=== PATIENT | male | born 1980 | race African-American/Black ===

== ENCOUNTER → 2016-12-07 | Outpatient (CLI) | payer MEDICARE, OTHER | LOC: DAVITANR 13:25 | PROVIDERS: ATTEND Nurse Practitioner Family | DX: E87.5 Hyperkalemia (principal) | CPT/HCPCS: 84132 ==

== ENCOUNTER → 2016-12-08 | Outpatient (CLI) | payer MEDICARE, OTHER | LOC: DAVITANR 09:26 | PROVIDERS: ATTEND Nurse Practitioner Family | DX: E87.5 Hyperkalemia (principal) | CPT/HCPCS: 84132 ==

== ENCOUNTER → 2016-12-11 | Outpatient (CLI) | payer MEDICARE, OTHER | LOC: DAVITANR 11:13 | PROVIDERS: ATTEND Internal Medicine Nephrology | DX: E87.5 Hyperkalemia (principal) | CPT/HCPCS: 84132 ==

== ENCOUNTER → 2016-12-18 | Outpatient (CLI) | payer MEDICARE, OTHER | LOC: DAVITANR 11:19 | PROVIDERS: ATTEND Internal Medicine Nephrology | DX: E87.5 Hyperkalemia (principal) | CPT/HCPCS: 84132 ==

== ENCOUNTER → 2016-12-20 | Outpatient (CLI) | payer MEDICARE, OTHER | LOC: DAVITANR 11:25 | PROVIDERS: ATTEND Internal Medicine Nephrology | DX: E87.5 Hyperkalemia (principal) | CPT/HCPCS: 84132 ==

== ENCOUNTER → 2016-12-25 | Outpatient (CLI) | payer MEDICARE, OTHER | LOC: DAVITANR 09:54 | PROVIDERS: ATTEND Internal Medicine Nephrology | DX: E87.5 Hyperkalemia (principal) | CPT/HCPCS: 84132 ==

== ENCOUNTER 2017-02-01 05:20 | Emergency (ER) | payer MEDICARE, OTHER ==
[2017-02-01] MEDS ORDERED: ASPIRIN 81 MG TABLET, CHEWABLE PO ONE (06:27)
[2017-02-01 06:50] LABS: ABSOLUTE BASOPHILS # (AUTO) 0.1 10^3/uL (0.0-0.2); ABSOLUTE EOSINOPHILS # (AUTO) 0.6 10^3/uL (0.0-0.6); ABSOLUTE LYMPHOCYTES (AUTO) 0.6 10^3/uL (0.5-4.7); ABSOLUTE MONOCYTES (AUTO) 0.7 10^3/uL (0.1-1.4); ABSOLUTE NEUT (AUTO) 5.6 10^3/uL (1.7-8.2); BASOPHILS % (AUTO) 0.8 % (0-2); EOSINOPHILS % (AUTO) 7.6 % (0-6); HEMATOCRIT 24.2 % (37.9-51.0); HGB HCT DIFFERENCE -0.2; LYMPHOCYTES % (AUTO) 8.4 % (13-45); MEAN CORPUSCULAR HEMOGLOBIN 26.7 pg (27.0-33.4); MEAN CORPUSCULAR HGB CONC 32.8 g/dL (32.0-36.0); MEAN CORPUSCULAR VOLUME 82 fl (80-97); MONOCYTES % (AUTO) 8.8 % (3-13); RED BLOOD COUNT 2.97 10^6/uL (4.35-5.55); RED CELL DISTRIBUTION WIDTH 19.2 % (11.5-14.0); SEGMENTED NEUTROPHILS % (AUTO) 74.4 % (42-78); WHITE BLOOD COUNT 7.5 10^3/uL (4.0-10.5)
--- NOTE | 2017-02-01 07:07 | RADIOLOGY REPORT (SQ) ---
EXAM DESCRIPTION: CHEST SINGLE VIEW COMPLETED DATE/TIME: 02/01/2017 6:53 am REASON FOR STUDY: CP COMPARISON: CT, 02/11/2016. EXAM PARAMETERS: NUMBER OF VIEWS: One view. TECHNIQUE: Single frontal radiographic view of the chest acquired. RADIATION DOSE: NA LIMITATIONS: None. FINDINGS: LUNGS AND PLEURA: Minimal left basilar atelectasis or scar rim blunting of the left costop hrenic angle. Moderate lung volume. MEDIASTINUM AND HILAR STRUCTURES: No masses. Contour normal. HEART AND VASCULAR STRUCTURES: Heart normal in size. Normal vasculature. BONES: No acute findings. HARDWARE: None in the chest. OTHER: No other significant finding. IMPRESSION: Minimal left basilar atelectasis or scar. TECHNICAL DOCUMENTATION: JOB ID: [id number]
[2017-02-01 07:08] LABS: ALANINE AMINOTRANSFERASE 27 U/L (21-72); ALBUMIN 3.2 g/dL (3.5-5.0); ALKALINE PHOSPHATASE 42 U/L (38-126); ASPARTATE AMINO TRANSFERASE 51 U/L (17-59); BILIRUBIN,DIRECT 0.3 mg/dL (0.0-0.4); BILIRUBIN,TOTAL 0.3 mg/dL (0.2-1.3); CALCIUM 9.5 mg/dL (8.4-10.2); CARBON DIOXIDE 21 mmol/L (22-30); CHLORIDE 104 mmol/L (98-107); CREATINE KINASE 793 U/L (55-170); CREATINE KINASE MB 5.85 ng/mL (<4.55); GLUCOSE 78 mg/dL (75-110); POTASSIUM 5.9 mmol/L (3.6-5.0); SODIUM 146.5 mmol/L (137-145); TOTAL PROTEIN 5.8 g/dL (6.3-8.2)
[2017-02-01 07:12] LABS: TROPONIN I 0.034 ng/mL
[2017-02-01 07:15] LABS: BLOOD UREA NITROGEN 119 mg/dL (7-20)
--- NOTE | 2017-02-01 07:26 | ER Document Report ---
ED Cardiac <MARCO WALKER - Last Filed: 02/01/17 08:31> - General Information source: Patient TRAVEL OUTSIDE OF THE U.S. IN LAST 30 DAYS: No - HPI Patient complains to provider of: Chest pain Chest pain location: Substernal Chest pain radiation location: None Associated symptoms: Other - see above Exacerbated by: Deep breaths, Other - putting fluid on through dialysis port Relieved by: Other - pulling fluid off from dialysis port <RUBEN KEITH - Last Filed: 02/03/17 15:31> - General Chief Complaint: Chest Pain Stated Complaint: CHEST PAIN Notes: Patient is a 36 year old male who presents to the ED with complaints of intermittent chest pain x1 week. Patient states that if feels like a tightness. Patient denies any SOB but states it is painful to breath. Patient recently traveled to [place] for a week. Patient has had multiple stress tests and EKGs done in the past. Patient recently traveled to [place]. Patient is a dialysis patient and reports draining around 0330 this morning. Patient states when he draws fluid off the pain is relieved and states recently he started having pain with putting fluid on. Patient denies any abdominal pain and states the fluid he is pulling off is normal. (RUBEN KEITH) - Related Data Allergies/Adverse Reactions: No Known Allergies Allergy (Unverified 06/28/15 10:36) Home Medications: Current Home Medications Calcitriol 0.25 mcg PO ASDIR PRN 02/01/17 [History] Carvedilol 25 mg PO BID 02/01/17 [History] Clonidine HCl [Clonidine HCl ER] 0.1 mg PO Q12 02/01/17 [History] Docusate Sodium 100 mg PO PRN PRN 02/01/17 [History] Escitalopram Oxalate 10 mg PO DAILY 02/01/17 [History] Folic Acid/Vitamin B Comp W-C [Chichi-Ernesto Tablet] 0.8 mg PO DAILY 02/01/17 [ History] Furosemide [Lasix] 40 mg PO DAILY 02/01/17 [History] Melatonin/Pyridoxine HCl (B6) [Melatonin 10 mg Tablet] 1 each PO PRN PRN [History] Omeprazole 40 mg PO DAILY 02/01/17 [History] Sodium Polystyrene Sulfonate 15 gm PO PRN PRN 08/03/17 [History] Past Medical History - General Information source: Patient - Social History Smoking Status: Never Smoker Chew tobacco use (# tins/day): No Frequency of alcohol use: None Drug Abuse: None Family History: Reviewed & Not Pertinent Patient has suicidal ideation: No Patient has homicidal ideation: No - Past Medical History Cardiac Medical History: Reports: Hx Hypertension - on meds Renal/ Medical History: Reports: Hx Peritoneal Dialysis - Drained at 330 this am - Immunizations Hx Diphtheria, Pertussis, Tetanus Vaccination: Yes <RUBEN KEITH - Last Filed: 02/03/17 15:31> Review of Systems - Review of Systems Constitutional: No symptoms reported EENT: No symptoms reported Cardiovascular: See HPI, Chest pain Respiratory: See HPI, Hurts to breathe. denies: Short of breath Gastrointestinal: No symptoms reported Genitourinary: No symptoms reported Male Genitourinary: No symptoms reported Musculoskeletal: No symptoms reported Skin: No symptoms reported Hematologic/Lymphatic: No symptoms reported Neurological/Psychological: No symptoms reported <RUBEN KEITH - Last Filed: 02/03/17 15:31> Physical Exam - General General appearance: Appears well, Alert In distress: None - HEENT Head: Normocephalic, Atraumatic Eyes: Normal Extraocular movements intact: Yes Pupils: PERRL - Respiratory Respiratory status: No respiratory distress Breath sounds: Normal - Cardiovascular Rhythm: Regular Heart sounds: Normal auscultation Murmur: Yes - loud crunching type murmur, patient was informed of murmur 1 year ago - Abdominal Inspection: Normal Distension: No distension Bowel sounds: Normal Tenderness: Tender - epigastric tenderness - Back Back: Normal - Extremities General upper extremity: Normal inspection, Normal ROM General lower extremity: Normal inspection, Edema - good pitting edema bilaterally, Normal ROM - Neurological Neuro grossly intact: Yes - Psychological Associated symptoms: Normal affect, Normal mood - Skin Skin Temperature: Warm Skin Moisture: Dry Skin Color: Normal <RUBEN KEITH - Last Filed: 02/03/17 15:31> - Vital signs Vitals: Temp Pulse Resp BP Pulse Ox 97.4 F 76 18 155/107 H 99 02/01/17 05:26 02/01/17 05:26 02/01/17 05:26 02/01/17 05:26 02/01/17 05:26 Course - Laboratory Result Diagrams: 02/01/17 06:35 02/01/17 06:35 - EKG Interpretation by Me EKG shows normal: Sinus rhythm, Hostetter, Intervals, QRS Complexes, ST-T Waves Rate: Normal - 73 Rhythm: NSR Hostetter/QRS: LAHB/LAFB P Waves: LAE When compared to previous EKG there are: No significant change <MARCO WALKER - Last Filed: 02/01/17 08:31> - Laboratory Result Diagrams: 02/01/17 06:35 02/01/17 06:35 - Consults Dr. Adam Time consulted: 08:20 <RUBEN KEITH - Last Filed: 02/03/17 15:31> - Re-evaluation Re-evalutation: 02/01/17 08:27 Patient reports his epigastric substernal discomfort seemed to improve after the GI cocktail. His BUN is 119 and creatinine is 33.69, this suggests that he has not been as compliant as he should during his vacation in [place] this past week. He will be given a dose of Kayexalate now for potassium 5.9, and is to go home and start his peritoneal dialysis. Dr. Adam will have the PD nurse follow-up with the patient. (MARCO WALKER) - Vital Signs Vital signs: Temp Pulse Resp BP Pulse Ox 97.4 F 78 21 H 138/107 H 96 02/01/17 08:36 02/01/17 08:36 02/01/17 08:36 02/01/17 08:36 02/01/17 08:36 - Laboratory Laboratory results interpreted by me: 02/01/17 02/01/17 02/01/17 06:35 06:35 06:35 RBC 2.97 L Hgb 8.0 L Hct 24.2 L MCH 26.7 L RDW 19.2 H Lymphocytes % 8.4 L Eosinophils % 7.6 H Sodium 146.5 H Potassium 5.9 H Carbon Dioxide 21 L Anion Gap 22 H BUN 119 H Creatinine 33.69 H Est GFR ( Amer) 2 L Est GFR (Non-Af Amer) 1 L Creatine Kinase 793 H CK-MB (CK-2) 5.85 H Total Protein 5.8 L Albumin 3.2 L - Consults Dr. Adam Reason for consultation: 02/01/17 08:20 Discussed patient. He suggests giving the patient 30 grams of kayexalate. He can then be discharged home. I will verify and instruct patient to be doing his PD 4x a day. (RUBEN KEITH) Discharge <MARCO WALKER - Last Filed: 02/01/17 08:31> <RUBEN KEITH - Last Filed: 02/03/17 15:31> - Discharge Clinical Impression: Hyperkalemia GERD (gastroesophageal reflux disease) Qualifiers: Esophagitis presence: with esophagitis Qualified Code(s): K21.0 - Gastro- esophageal reflux disease with esophagitis Chronic renal failure Qualifiers: Chronic kidney disease stage: stage 5 Qualified Code(s): N18.5 - Chronic kidney disease, stage 5 Condition: Stable Disposition: HOME, SELF-CARE Additional Instructions: Reflux Disease (GERD): Gastro-Esophageal Reflux Disease (GERD) is caused by stomach acid refluxing back up into the esophagus. The valve at the end of the esophagus may be weak. This is common in persons with a hiatal hernia. GERD symptoms can include indigestion, chest pain, heartburn, or food "sticking." Certain foods, alcohol, and aspirin can make GERD worse. Treatment depends on the severity. Usually, antacids or acid-suppressing medicines are used. When the esophagus is acutely inflamed, the physician will often prescribe membrane-protective drugs such as Carafate. Some patients benefit from medication such as Reglan that tightens the valve at the top of the stomach. Avoid those foods that bring on your symptoms. For many people, these foods are coffee, chocolate, onions, garlic, and carbonated drinks. Don't use alcohol, aspirin, caffeine, or tobacco. Don't eat late at night -- within 4 hours of bedtime. Don't over-eat. If necessary, elevate the head of your bed about 4 inches so that stomach acid will not roll up into your esophagus. Call the doctor if you develop severe chest pain, inability to swallow fluids, fever, or worsening symptoms. //////////////////////////////////////////////////////////////////////////////// //////////////////////////////////////////////////////////////////////////////// ////////////// Start your peritoneal dialysis when you get home. Be sure to do it 4 times daily. Eat a bland diet for the next week. Take Prilosec OTC once daily for the next week. Take antacids such as Maalox or Mylanta between meals and at bedtime. Follow-up with Dr. Adam to repeat your lab work and to evaluate your symptoms. RETURN TO THE EMERGENCY ROOM IF ANY NEW OR WORSENING SYMPTOMS. [place] Attestation: 02/01/17 08:30 I personally performed the services described in the documentation, reviewed and edited the documentation which was dictated to the scribe in my presence, and it accurately records my words and actions. (MARCO WALKER) Scribe Documentation - Scribe Written by Zeina:: zeina Chaney, 02/01/2017, 0721 acting as scribe for :: Airam <RUBEN KEITH - Last Filed: 02/03/17 15:31>
[2017-02-01 07:30] LABS: CREATININE RESULT 33.69 mg/dL (0.52-1.25)
[2017-02-01 07:31] LABS: ANION GAP 22 (5-19)
[2017-02-01] MEDS ORDERED: LIDOCAINE 2% VISCOUS SOLN 20 ML UDCUP PO ONE (07:31)
[2017-02-01] MEDS ORDERED: MAG HYDROX/AL HYDROX/SIMETH SUSP 30 ML UDCUP PO ONE (07:31)
--- NOTE | 2017-02-01 08:10 | EKG REPORT ---
SEVERITY:- ABNORMAL ECG - SINUS RHYTHM PROBABLE LEFT ATRIAL ABNORMALITY LEFT ANTERIOR FASCICULAR BLOCK CONSIDER RVH W/ SECONDARY REPOL ABNORMALITY : Confirmed by: Manuel Combs MD 01-Feb-2017 08:10:27
[2017-02-01] MEDS ORDERED: SODIUM POLYSTYRENE SULFONATE 15 GM/60 ML PO ONE (08:24)
[2017-02-01 08:37] VITALS: BP 138/107
== END 2017-02-01 09:11 | disposition home or self-care (01) ==
LOC: ER 05:20
DX: K21.0 Gastro-esophageal reflux disease with esophagitis (principal); N18.5 Chronic kidney disease, stage 5; E87.5 Hyperkalemia; R07.9 Chest pain, unspecified; Z79.899 Other long term (current) drug therapy
CPT/HCPCS: 93005; 99285; 36415; 82553; 82550; 85025; 80053; 84484; 71010; 93010; A9270; J3490

== ENCOUNTER 2017-02-07 17:04 | Emergency (ER) | payer MEDICARE, OTHER ==
--- NOTE | 2017-02-07 17:59 | ER Document Report ---
ED Medical Screen (RME) - General TRAVEL OUTSIDE OF THE U.S. IN LAST 30 DAYS: No <MARCO WALKER - Last Filed: 02/07/17 18:00> <DEBRA DUARTE - Last Filed: 02/07/17 20:20> - General Chief Complaint: Dizziness Stated Complaint: WEAKNESS Time Seen by Provider: 02/07/17 17:50 Notes: This 36-year-old male patient comes emergency room for feeling dizzy lightheaded. He was seen here on 02/01/2017 and found to have very high BUN and creatinine and elevated potassium. His a peritoneal dialysis patient who had been on vacation in [place] and probably not very compliant with his dialysis schedule. The next day he was sent to [facility] for uremic pericarditis and started hemodialysis. He reports while there, they restrict his fluid intake and took a large amount of fluid off every day. His blood pressure medication was reduced while he was in the hospital. He was released from the hospital yesterday. When he got up this morning to go to dialysis he felt a little dizzy and spaced out and once there found his blood pressure was about 90 systolic. He did dialyze but they did not remove any fluid. He was discharged with a blood pressure 100/74 while standing, but soon after being discharged from dialysis his blood pressure was much lower. I have greeted and performed a rapid initial assessment of this patient. A comprehensive ED assessment and evaluation of the patient, analysis of test results and completion of the medical decision making process will be conducted by additional ED providers. (MARCO WALKER) - Related Data Allergies/Adverse Reactions: No Known Allergies Allergy (Verified 02/07/17 17:34) Home Medications: Current Home Medications Clonidine HCl [Clonidine HCl ER] 0.1 mg PO Q12 02/07/17 [History] Valsartan [Diovan 160 mg Tablet] 160 mg PO DAILY 02/07/17 [History] Past Medical History - Past Medical History Cardiac Medical History: Reports: Hx Hypertension - on meds Denies: Hx Heart Attack Pulmonary Medical History: Denies: Hx Asthma, Hx Bronchitis, Hx COPD, Hx Pneumonia Neurological Medical History: Denies: Hx Seizures Renal/ Medical History: Reports: Hx Peritoneal Dialysis Musculoskeltal Medical History: Denies Hx Arthritis - Immunizations Hx Diphtheria, Pertussis, Tetanus Vaccination: Yes <MARCO WALKER - Last Filed: 02/07/17 18:00> Course - Laboratory Result Diagrams: 02/07/17 18:45 02/07/17 18:45 - EKG Interpretation by Me EKG shows normal: Sinus rhythm Rhythm: NSR - EKG machine is noting ST elevation which I do not see. No WV depression or WV elevation in AVR to suggest acute pericarditis.96 <DEBRA DUARTE - Last Filed: 02/07/17 20:20> - Vital Signs Vital signs: Temp Pulse Resp BP Pulse Ox 97.7 F 84 18 104/76 100 02/07/17 17:37 02/07/17 17:37 02/07/17 17:37 02/07/17 17:37 02/07/17 17:37 - Laboratory Laboratory results interpreted by me: 02/07/17 02/07/17 18:45 18:45 RBC 2.54 L Hgb 6.8 L Hct 21.8 L MCH 26.9 L MCHC 31.3 L RDW 19.2 H Seg Neutrophils % 78.9 H Lymphocytes % 8.0 L Creatinine 4.27 H Est GFR ( Amer) 19 L Est GFR (Non-Af Amer) 16 L Direct Bilirubin 0.5 H AST 160 H Creatine Kinase 415 H Doctor's Discharge <MARCO WALKER - Last Filed: 02/07/17 18:00> <DEBRA DUARTE - Last Filed: 02/07/17 20:20> - Discharge Clinical Impression: Dizziness, Chronic renal failure, Anemia, chronic disease Condition: Good Disposition: HOME, SELF-CARE Instructions: Dizziness ([facility]) Additional Instructions: Your blood count, hemoglobin, was slightly lower than it was before today but you have no evidence of ongoing bleeding and are otherwise stable for discharge. These have your blood checked at dialysis or your primary care doctor in 2 days to confirm that this is not getting worse. Please speak with your regular doctor concerning her medications because this may have caused her symptoms today.
--- NOTE | 2017-02-07 18:54 | ER Document Report ---
ED General - General Chief Complaint: Dizziness Stated Complaint: WEAKNESS Time Seen by Provider: 02/07/17 17:50 Notes: This 36-year-old male with a complex medical history consisting of end-stage renal disease previously on peritoneal dialysis now on hemodialysis secondary to a recent diagnosis of pericarditis who presents with episode of generalized weakness and dizziness that began after he took his 2 blood pressure meds this morning and drove himself to dialysis. He did not pass out but felt like he might. He had no chest pain shortness of breath or headache. He did get to dialysis even though EMS was called to assist him he refused to come to the ED initially. He had a full run of 4 hours of dialysis after she felt much better. He states that his blood pressure was slightly low at 110s after dialysis. His baseline is 130s. He now feels fine. He denies any bleeding. Compliant with meds. TRAVEL OUTSIDE OF THE U.S. IN LAST 30 DAYS: No - Related Data Allergies/Adverse Reactions: No Known Allergies Allergy (Verified 02/07/17 17:34) Home Medications: Current Home Medications Clonidine HCl [Clonidine HCl ER] 0.1 mg PO Q12 02/07/17 [History] Valsartan [Diovan 160 mg Tablet] 160 mg PO DAILY 02/07/17 [History] Past Medical History - General Information source: Patient - Social History Smoking Status: Never Smoker Family History: Reviewed & Not Pertinent Patient has suicidal ideation: No Patient has homicidal ideation: No - Past Medical History Cardiac Medical History: Reports: Hx Hypertension - on meds Denies: Hx Heart Attack Pulmonary Medical History: Denies: Hx Asthma, Hx Bronchitis, Hx COPD, Hx Pneumonia Neurological Medical History: Denies: Hx Seizures Renal/ Medical History: Reports: Hx Peritoneal Dialysis Musculoskeltal Medical History: Denies Hx Arthritis - Immunizations Hx Diphtheria, Pertussis, Tetanus Vaccination: Yes Review of Systems - Review of Systems Notes: REVIEW OF SYSTEMS GEN: Denies fever, chills, weight loss ENT: Denies sore throat, nasal discharge, ear pain EYES: Denies blurry vision, eye pain, discharge CV: Denies chest pain, palpitations, edema RESP: Denies cough, shortness of breath, wheezing GI: Denies abdominal pain, nausea, vomiting, diarrhea MSK: Denies joint pain/swelling, edema, SKIN: Denies rash, skin lesions LYMPH: Denies swollen glands/lymph nodes NEURO: Denies headache, focal weakness or numbness, dizziness PSYCH: Denies depression, suicidal or homicidal ideation PHYSICAL EXAMINATION General: No acute distress, well-nourished Head: Atraumatic, normocephalic ENT: Mouth normal, oropharynx moist, no exudates or tonsillar enlargement Eyes: Conjunctiva normal, pupils equal, lids normal Neck: No JVD, supple, no guarding CVS: Normal rate, regular rhythm, no murmurs. There is a dialysis catheter in the right chest tunneled with no tenderness which has a clean site. Resp: No resp distress, equal and normal breath sounds bilaterally GI: Nondistended, soft, no tenderness to palpation, no rebound or guarding Ext: No deformities, no edema, normal range of motion in upper and lower ext Back: No CVA or midline TTP Skin: No rash, warm Lymphatic: No lymphadeopathy noted Neuro: Awake, alert. Face symmetric. GCS 15.. Positive dizziness. Physical Exam - Vital signs Vitals: Temp Pulse Resp BP Pulse Ox 97.7 F 84 18 104/76 100 02/07/17 17:37 02/07/17 17:37 02/07/17 17:37 02/07/17 17:37 02/07/17 17:37 Course - Re-evaluation Re-evalutation: 02/07/17 18:54 36-year-old male on dialysis presents with resolved episode of dizziness. Here his vital signs are at his baseline he looks very well. I suspect he either had an episode of hypotension or hypertension, however if he was super hypotensive he would never been dialyzed. His medication may have an effect as well. Either way, now he looks well with normal vital signs. We will check his labs. He does have chronic anemia but no symptoms of worsening anemia or blood loss. Will observe carefully in ED. 02/07/17 20:18 Remained clinically stable. Aside from some slightly worse anemia, which should not cause transient symptoms, his labs are normal and he is well dialyzed based on his labs. He is stable for discharge with follow-up including getting repeat labs which I put in his discharge information. I have discussed with the patient there likely diagnosis, aftercare plan, follow -up plans and my usual and customary return precautions. They verbalized understanding of this. - Vital Signs Vital signs: Temp Pulse Resp BP Pulse Ox 97.7 F 84 18 104/76 100 02/07/17 17:37 02/07/17 17:37 02/07/17 17:37 02/07/17 17:37 02/07/17 17:37 - Laboratory Result Diagrams: 02/07/17 18:45 02/07/17 18:45 Laboratory results interpreted by me: 02/07/17 02/07/17 18:45 18:45 RBC 2.54 L Hgb 6.8 L Hct 21.8 L MCH 26.9 L MCHC 31.3 L RDW 19.2 H Seg Neutrophils % 78.9 H Lymphocytes % 8.0 L Creatinine 4.27 H Est GFR ( Amer) 19 L Est GFR (Non-Af Amer) 16 L Direct Bilirubin 0.5 H AST 160 H Creatine Kinase 415 H Discharge - Discharge Clinical Impression: Dizziness, Chronic disease anemia Chronic renal failure Qualifiers: Chronic kidney disease stage: stage 5 Qualified Code(s): N18.5 - Chronic kidney disease, stage 5 Condition: Good Disposition: HOME, SELF-CARE Instructions: Dizziness ([facility]) Additional Instructions: Your blood count, hemoglobin, was slightly lower than it was before today but you have no evidence of ongoing bleeding and are otherwise stable for discharge. These have your blood checked at dialysis or your primary care doctor in 2 days to confirm that this is not getting worse. Please speak with your regular doctor concerning her medications because this may have caused her symptoms today.
[2017-02-07 19:30] LABS: ABSOLUTE BASOPHILS # (AUTO) 0.1 10^3/uL (0.0-0.2); ABSOLUTE EOSINOPHILS # (AUTO) 0.1 10^3/uL (0.0-0.6); ABSOLUTE LYMPHOCYTES (AUTO) 0.6 10^3/uL (0.5-4.7); ABSOLUTE MONOCYTES (AUTO) 0.9 10^3/uL (0.1-1.4); ABSOLUTE NEUT (AUTO) 6.3 10^3/uL (1.7-8.2); BASOPHILS % (AUTO) 0.8 % (0-2); EOSINOPHILS % (AUTO) 1.1 % (0-6); HEMATOCRIT 21.8 % (37.9-51.0); HGB HCT DIFFERENCE -1.4; MEAN CORPUSCULAR HEMOGLOBIN 26.9 pg (27.0-33.4); MEAN CORPUSCULAR HGB CONC 31.3 g/dL (32.0-36.0); MEAN CORPUSCULAR VOLUME 86 fl (80-97); MONOCYTES % (AUTO) 11.2 % (3-13); RED BLOOD COUNT 2.54 10^6/uL (4.35-5.55); RED CELL DISTRIBUTION WIDTH 19.2 % (11.5-14.0); SEGMENTED NEUTROPHILS % (AUTO) 78.9 % (42-78)
[2017-02-07 19:50] LABS: ALANINE AMINOTRANSFERASE 63 U/L (21-72); ALBUMIN 3.7 g/dL (3.5-5.0); ALKALINE PHOSPHATASE 76 U/L (38-126); ANION GAP 9 (5-19); ASPARTATE AMINO TRANSFERASE 160 U/L (17-59); BILIRUBIN,DIRECT 0.5 mg/dL (0.0-0.4); BILIRUBIN,TOTAL 0.6 mg/dL (0.2-1.3); CALCIUM 8.9 mg/dL (8.4-10.2); CARBON DIOXIDE 28 mmol/L (22-30); CHLORIDE 100 mmol/L (98-107); CREATINE KINASE 415 U/L (55-170); CREATININE RESULT 4.27 mg/dL (0.52-1.25); GLUCOSE 102 mg/dL (75-110); POTASSIUM 4.4 mmol/L (3.6-5.0); SODIUM 137.1 mmol/L (137-145)
[2017-02-07 19:51] LABS: HEMOGLOBIN 6.8 g/dL (13.5-17.0)
[2017-02-07 20:06] LABS: BLOOD UREA NITROGEN 14 mg/dL (7-20)
[2017-02-07 21:04] VITALS: BP 118/85
--- NOTE | 2017-02-08 13:07 | EKG REPORT ---
SEVERITY:- NORMAL ECG - SINUS RHYTHM ST ELEV, PROBABLE NORMAL EARLY REPOL PATTERN : Confirmed by: Kayla Barker 08-Feb-2017 13:07:07
== END 2017-02-07 20:50 | disposition home or self-care (01) ==
LOC: ER 17:04
DX: R42 Dizziness and giddiness (principal); D64.9 Anemia, unspecified; R53.1 Weakness; I12.0 Hypertensive chronic kidney disease with stage 5 chronic kidney disease or end stage renal disease; N18.6 End stage renal disease; Z99.2 Dependence on renal dialysis; Z79.899 Other long term (current) drug therapy
CPT/HCPCS: 36415; 80053; 82550; 84484; 85025; 86850; 86900; 86901; 87040; 93005; 93010; 99284

== ENCOUNTER 2017-02-09 09:22 | Emergency (ER) | payer MEDICARE, OTHER ==
--- NOTE | 2017-02-09 09:44 | ER Document Report ---
ED General - General Stated Complaint: RESPIRATORY DISTRESS Time Seen by Provider: 02/09/17 09:25 Mode of Arrival: Medic Information source: Patient Notes: 36-year-old male history of dialysis chronic kidney disease presents with complaints of shortness of breath that started just prior to arrival. Patient denies any fevers or chills with #92%. Symptoms started 1 hour prior to arrival. Patient TRAVEL OUTSIDE OF THE [place] IN LAST 30 DAYS: No - Related Data Allergies/Adverse Reactions: No Known Allergies Allergy (Verified 02/07/17 17:34) Past Medical History - Social History Smoking Status: Never Smoker Cigarette use (# per day): No Chew tobacco use (# tins/day): No Smoking Education Provided: No Family History: Reviewed & Not Pertinent - Past Medical History Cardiac Medical History: Reports: Hx Hypertension - on meds Denies: Hx Heart Attack Pulmonary Medical History: Denies: Hx Asthma, Hx Bronchitis, Hx COPD, Hx Pneumonia Neurological Medical History: Denies: Hx Seizures Renal/ Medical History: Reports: Hx Peritoneal Dialysis Musculoskeltal Medical History: Denies Hx Arthritis - Immunizations Hx Diphtheria, Pertussis, Tetanus Vaccination: Yes Physical Exam - Vital signs Vitals: Resp 20 02/09/17 09:29 Course - Re-evaluation Re-evalutation: 02/09/17 09:52 Due to patient's hypotension hypoxemia and recent diagnosis of pericarditis a bedside ultrasound was performed and I do believe patient has a very large pericardial effusion, we do not have interventional thickening deal with this, I did speak with Dr. Hurd who requests a CT of the chest for her to diagnosis faster since echo is in the middle of a procedure, we do not have interventional radiology to perform pericardial window or drainage 02/09/17 10:10 Echo is here , large effusion confirmed 02/09/17 10:20 Patient's potassium is 6.6 Dr. Adam has been paged, he will be treated with medication in the meantime 02/09/17 10:26 Dr Marroquin welding tester request nephro admission to [facility] 02/09/17 10:[address] Adam requests Dr Rivera to evaluate 02/09/17 10:33 Echo is complete, agree with large effusion 02/09/17 10:44 Dr mcleod nephrolgosit states he does not admit 02/09/17 10:59 Dr Adam states he spoke with Dr Mcleod, agrees that patient needs cardio or interventional Dr Marroquin accepts the patient to the ICU , does not wish to speak with me further 02/09/17 11:20 02/09/17 12:05 Flight crew given instruction - Vital Signs Vital signs: Temp Pulse Resp BP Pulse Ox 97.7 F 95 23 H 107/61 97 02/09/17 09:30 02/09/17 09:30 02/09/17 11:31 02/09/17 11:31 02/09/17 11:31 - Laboratory Result Diagrams: 02/09/17 09:40 02/09/17 09:40 Laboratory results interpreted by me: 02/09/17 02/09/17 02/09/17 09:40 09:40 09:40 WBC 11.2 H RBC 2.75 L Hgb 7.0 L Hct 23.9 L MCH 25.6 L MCHC 29.5 L RDW 18.7 H Lymphocytes % 7.0 L Monocytes % 14.9 H Absolute Neutrophils 8.7 H Absolute Monocytes 1.7 H Sodium 132.9 L Potassium 6.6 H* Chloride 94 L Carbon Dioxide 18 L Anion Gap 21 H BUN 33 H Creatinine 6.19 H Est GFR ( Amer) 12 L Est GFR (Non-Af Amer) 10 L Glucose 74 L Direct Bilirubin 0.5 H AST 3052 H ALT 1230 H Creatine Kinase 443 H NT-Pro-B Natriuret Pep 4680 H Total Protein 5.6 L Albumin 3.0 L - Diagnostic Test Radiology reviewed: Image reviewed, Reports reviewed - large effusion Critical Care Note - Critical Care Note Total time excluding time spent on procedures (mins): 110 Comments: Please allow for 110 minutes of critical care time for multiple evaluations, speaking with multiple speciailst, treating multiple critical life threatening issues Discharge - Discharge Clinical Impression: ESRD (end stage renal disease), Hyperkalemia, Pericardial effusion, Hypoxemia Hypotension Qualifiers: Hypotension type: unspecified hypotension type Qualified Code(s): I95.9 - Hypotension, unspecified Condition: Critical Disposition: [facility] Referrals: Sherrie ADAM MD [Primary Care Provider] - Follow up as needed
[2017-02-09 09:51] LABS: ABSOLUTE LYMPHOCYTES (AUTO) 0.8 10^3/uL (0.5-4.7); ABSOLUTE MONOCYTES (AUTO) 1.7 10^3/uL (0.1-1.4); ABSOLUTE NEUT (AUTO) 8.7 10^3/uL (1.7-8.2); BASOPHILS % (AUTO) 0.3 % (0-2); HEMATOCRIT 23.9 % (37.9-51.0); HGB HCT DIFFERENCE -2.9; MEAN CORPUSCULAR HEMOGLOBIN 25.6 pg (27.0-33.4); MEAN CORPUSCULAR HGB CONC 29.5 g/dL (32.0-36.0); MEAN CORPUSCULAR VOLUME 87 fl (80-97); MONOCYTES % (AUTO) 14.9 % (3-13); RED BLOOD COUNT 2.75 10^6/uL (4.35-5.55); RED CELL DISTRIBUTION WIDTH 18.7 % (11.5-14.0); SEGMENTED NEUTROPHILS % (AUTO) 77.8 % (42-78); WHITE BLOOD COUNT 11.2 10^3/uL (4.0-10.5)
[2017-02-09 10:05] LABS: ALKALINE PHOSPHATASE 121 U/L (38-126); BILIRUBIN,DIRECT 0.5 mg/dL (0.0-0.4); BLOOD UREA NITROGEN 33 mg/dL (7-20); CALCIUM 9.3 mg/dL (8.4-10.2); CARBON DIOXIDE 18 mmol/L (22-30); CHLORIDE 94 mmol/L (98-107); CREATINE KINASE 443 U/L (55-170); CREATININE RESULT 6.19 mg/dL (0.52-1.25); GLUCOSE 74 mg/dL (75-110); SODIUM 132.9 mmol/L (137-145); TOTAL PROTEIN 5.6 g/dL (6.3-8.2)
[2017-02-09 10:15] LABS: ALANINE AMINOTRANSFERASE 1230 U/L (21-72); CREATINE KINASE MB 3.26 ng/mL (<4.55)
[2017-02-09 10:16] LABS: POTASSIUM 6.6 mmol/L (3.6-5.0)
[2017-02-09 10:18] LABS: TROPONIN I 0.042 ng/mL
[2017-02-09] MEDS ORDERED: ALBUTEROL SULFATE 0.083% NEB 2.5 MG/3 ML AMPUL NEB ONE (10:19)
[2017-02-09] MEDS ORDERED: CALCIUM GLUCONATE 1000 MG/10 ML INJ IV ONE (10:20)
[2017-02-09] MEDS ORDERED: INSULIN REG, HUMAN 100 UNIT/ML 3 ML VIAL (PYX) IV ONE (10:20)
[2017-02-09] MEDS ORDERED: SODIUM BICARBONATE 8.4% INJ 50 MEQ/50 ML DISP.SYRIN IV ONE (10:20)
[2017-02-09] MEDS ORDERED: DEXTROSE 50%-WATER 25 GM/50 ML DISP.SYRIN IV ONE (10:20)
--- NOTE | 2017-02-09 10:24 | RADIOLOGY REPORT (SQ) ---
EXAM DESCRIPTION: CT CHEST WITHOUT COMPLETED DATE/TIME: 02/09/2017 10:02 am REASON FOR STUDY: pericardial effusion COMPARISON: Chest films 02/01/2017, CT chest 02/11/2016 TECHNIQUE: CT scan performed of the chest without intravenous contrast. Images reviewed with lung, soft tissue and bone windows. Reconstructed coronal and sagittal MPR images reviewed. All images st ored on PACS. All CT scanners at this facility use dose modulation, iterative reconstruction, and/or weight based d osing when appropriate to reduce radiation dose to as low as reasonably achievable (ALARA). [facility]: Dose Right [facility]: CareDose [facility]: Dose Right [facility]: Teradose 4D [facility]: Smart [employer] RADIATION DOSE: Up-to-date CT equipment and radiation dose reduction techniques were employed. CTDIv ol: 7.6 mGy. DLP: 296 mGy-cm. mGy. LIMITATIONS: No technical limitations. FINDINGS: LUNGS AND PLEURA: Small bilateral pleural effusions layer dependently in the right and lef t chest. Minimal bandlike atelectasis at both lung bases. Benign subcentimeter nodules or focal fluid collections along the right major fissure (axial image 31 ) and right minor fissure (axial image 35) of doubtful clinical significance. HILAR AND MEDIASTINAL STRUCTURES: No identified masses or abnormal nodes. No obvious aneurysm. HEART AND VASCULAR STRUCTURES: Very large pericardial effusion. This does flatten the contour of the right atrium. Findings discussed with Dr. Alejandra. UPPER ABDOMEN: No significant findings. Limited exam. THYROID AND OTHER SOFT TISSUES: No masses. No adenopathy. BONES: No significant finding. HARDWARE: Right jugular central venous dialysis catheter tip in the right atrium. OTHER: No other significant findings. IMPRESSION: Large pericardial effusion Small bilateral pleural effusions with bibasilar atelectasis TECHNICAL DOCUMENTATION: JOB ID: [id number] Quality ID # [id number]: Final reports with documentation of one or more dose reduction techniques (e.g., Au tomated exposure control, adjustment of the mA and/or kV according to patient size, use of iterative reconstruction technique) 2010 [employer]- All Rights Reserved
[2017-02-09] MEDS ORDERED: NORMAL SALINE 1000 ML 1,000 ML IV ONE (10:33)
[2017-02-09 10:37] LABS: ASPARTATE AMINO TRANSFERASE 3052 U/L (17-59)
[2017-02-09 10:38] LABS: ANION GAP 21 (5-19)
[2017-02-09 11:40] VITALS: BP 107/61
--- NOTE | 2017-02-09 12:08 | XCELERA REPORT ---
[address] [address] Transthoracic Echocardiogram Report Name: LYUBOV LANGLEY JR Age: 36 yrs Gender: Male : 1980 Patient Status: Emergency Patient Location: ER Study Date: 02/09/2017 10:06 AM Height: 69 in Weight: 161 lb BSA: 1.9 m2 Procedure: A two-dimensional transthoracic echocardiogram with color flow and Doppler was performed. Study Quality: Fair. Reason For Study: PERICARDITIS / SOB History: PERICARDITIS / SOB. Ordering Physician: BROOK VAZ Performed By: Anaya Spain Interpretation Summary The left ventricle is normal in size. There is mild concentric left ventricular hypertrophy. LV EF is > than 65% Left ventricular systolic function is normal. Doppler measurements suggest normal left ventricular diastolic function The left ventricular wall motion is normal. The right ventricle is normal size. There is diastolic collapse of the RV suggestive of early tamponade. Normal RA size.There is diastolic collapse of RA suggestive of early tamponade. The left atrial size is normal. There is no evidence of mitral valve prolapse. There is no mitral valve stenosis. There is a trace to mild amount of mitral regurgitation There is no aortic valve stenosis There is no LVOT obstruction. No aortic regurgitation is present. There is no tricuspid stenosis. There is a mild amount of tricuspid regurgitation There is mild pulmonary hypertension by echo RVSP is 42 mm of Hg , with RA mean of 13. IVC is distended with no change with respiration. Large circumferential pericardial effusion .There is diastolic collapse of RA and RV cuellar, but the TVI and MVI still show variation with respiration.Hence this represents early tamponade.Correlate clinically. MMode/2D Measurements \T\ Calculations RVDd: 2.0 cm LVIDd: 3.5 cm FS: 44.7 % Ao root diam: 2.5 cm IVSd: 1.3 cm LVIDs: 1.9 cm EDV(Teich): 50.4 ml LVPWd: 1.4 cm ESV(Teich): 11.6 ml Ao root area: 4.8 cm2 EF(Teich): 77.0 % LA dimension: 2.9 cm LVOT diam: 2.1 cm LVOT area: 3.3 cm2 Doppler Measurements \T\ Calculations MV E max cecilia: MV P1/2t max cecilia: Ao V2 max: LV V1 max P.8 cm/sec 57.8 cm/sec 134.8 cm/sec 4.7 mmHg MV A max cecilia: MV P1/2t: 46.2 msec Ao max PG: LV V1 max: 45.4 cm/sec MVA(P1/2t): 4.8 cm2 7.3 mmHg 108.6 cm/sec MV E/A: 1.3 MV dec slope: CRISTOFER(V,D): 2.7 cm2 366.4 cm/sec2 PA V2 max: TR max cecilia: 81.9 cm/sec 256.5 cm/sec PA max PG: TR max P.3 mmHg 2.7 mmHg Left Ventricle The left ventricle is normal in size. There is mild concentric left ventricular hypertrophy. LV EF is > than 65%. Left ventricular systolic function is normal. Doppler measurements suggest normal left ventricular diastolic function. The left ventricular wall motion is normal. There is no thrombus. Right Ventricle The right ventricle is normal size. There is diastolic collapse of the RV suggestive of early tamponade. Atria Normal RA size.There is diastolic collapse of RA suggestive of early tamponade. The left atrial size is normal. Mitral Valve There is no evidence of mitral valve prolapse. There is no vegetation seen on the mitral valve. There is no mitral valve stenosis. There is a trace to mild amount of mitral regurgitation. Aortic Valve There is no aortic valvular vegetation. There is no aortic valve stenosis. There is no LVOT obstruction. No aortic regurgitation is present. Tricuspid Valve There is no tricuspid stenosis. There is a mild amount of tricuspid regurgitation. There is mild pulmonary hypertension by echo. RVSP is 42 mm of Hg , with RA mean of 13. Pulmonic Valve There is no pulmonic valvular stenosis. There is no pulmonic valvular regurgitation. Great Vessels The aortic root is normal size. IVC is distended with no change with respiration. Effusions Large circumferential pericardial effusion .There is diastolic collapse of RA and RV cuellar, but the TVI and MVI still show variation with respiration.Hence this represents early tamponade.Correlate clinically. : BROOK VAZ > Cristiana Bhatia
--- NOTE | 2017-02-09 12:50 | EKG REPORT ---
SEVERITY:- NORMAL ECG - SINUS RHYTHM ST ELEV, PROBABLE NORMAL EARLY REPOL PATTERN : Confirmed by: Kayla Barker 09-Feb-2017 12:48:45
== END 2017-02-09 11:43 | disposition short-term general hospital (02) ==
LOC: ER 09:22
DX: I95.9 Hypotension, unspecified (principal); R09.02 Hypoxemia; I31.3 Pericardial effusion (noninflammatory); E87.5 Hyperkalemia; N18.6 End stage renal disease; R06.00 Dyspnea, unspecified; Z99.2 Dependence on renal dialysis
CPT/HCPCS: 36415; 71250; 80053; 82550; 82553; 83880; 84484; 85025; 93005; 93010; 93306; 94640; 96365; 96375; 99291; 99292; J0610; J1815; J3490; J7030

== ENCOUNTER → 2017-02-28 | Outpatient (CLI) | payer MEDICARE, OTHER | LOC: OD 17:27 | PROVIDERS: ATTEND Internal Medicine Nephrology | DX: N18.6 End stage renal disease (principal); D63.1 Anemia in chronic kidney disease; E87.5 Hyperkalemia ==

== ENCOUNTER → 2017-03-09 | Outpatient (CLI) | payer MEDICARE, OTHER ==
--- NOTE | 2017-03-09 11:02 | RADIOLOGY REPORT (SQ) ---
EXAM DESCRIPTION: CT CHEST WITHOUT COMPLETED DATE/TIME: 03/09/2017 10:20 am REASON FOR STUDY: SOLITARY PULMONARY NODULE R91.1 SOLITARY PULMONARY NODULE COMPARISON: 02/09/2017 TECHNIQUE: CT scan performed of the chest without intravenous contrast. Images reviewed with lung, soft tissue and bone windows. Reconstructed coronal and sagittal MPR images reviewed. All images st ored on PACS. All CT scanners at this facility use dose modulation, iterative reconstruction, and/or weight based d osing when appropriate to reduce radiation dose to as low as reasonably achievable (ALARA). [facility]: Dose Right [facility]: CareDose [facility]: Dose Right [facility]: Teradose 4D [facility]: Smart [employer] RADIATION DOSE: Up-to-date CT equipment and radiation dose reduction techniques were employed. CTDIv ol: 3.9 mGy. DLP: 160 mGy-cm. mGy. LIMITATIONS: No technical limitations. FINDINGS: LUNGS AND PLEURA: A stable 6 mm nodule is seen adjacent to the fissure on image 71 series 4 on the right. A is 6 mm nodule seen anteriorly in the right lung on image 77 series 4 this appears minimally more prominent. No additional pulmonary nodules are seen. There is a persistent small le ft pleural effusion. The right pleural effusion has resolved. HILAR AND MEDIASTINAL STRUCTURES: No identified masses or abnormal nodes. No obvious aneurysm. HEART AND VASCULAR STRUCTURES: No aneurysm. Minimal pericardial effusion with significant improvemen t. UPPER ABDOMEN: No significant findings. Limited exam. THYROID AND OTHER SOFT TISSUES: No masses. No adenopathy. BONES: No significant finding. HARDWARE: A right internal jugular catheter has its tip in the right atrium. OTHER: No other significant findings. IMPRESSION: 1. Two small nonspecific pulmonary nodules on the right. The more anterior 1 appears s lightly larger. That may merely be secondary to a slightly different slice selection. 2. Persistent left pleural effusion with resolution of right pleural effusion. There is some associ ated atelectasis on the left. 3. Improved pericardial effusion with minimal residual. TECHNICAL DOCUMENTATION: JOB ID: [id number] Quality ID # [id number]: Final reports with documentation of one or more dose reduction techniques (e.g., Au tomated exposure control, adjustment of the mA and/or kV according to patient size, use of iterative reconstruction technique) 2010 [employer]- All Rights Reserved
== END ==
LOC: RAD 10:06
PROVIDERS: ATTEND Physician Assistant Medical
DX: R91.1 Solitary pulmonary nodule (principal)
CPT/HCPCS: 71250

== ENCOUNTER 2017-04-01 17:23 | Emergency (ER) | payer MEDICARE, OTHER ==
--- NOTE | 2017-04-01 18:00 | ER Document Report ---
ED Medical Screen (RME) - General Chief Complaint: Chest Pain > 30 Stated Complaint: CHEST PAIN Time Seen by Provider: 04/01/17 17:35 Mode of Arrival: Ambulatory Information source: Patient TRAVEL OUTSIDE OF THE [place] IN LAST 30 DAYS: No - HPI Patient complains to provider of: Chest pain Notes: 04/01/17 17:59 Patient is a 36-year-old male with a history of end-stage renal disease, hypertension and sarcoidosis, presenting to the emergency room today complaining of chest pain that started after dialysis on Sunday, and has worsened throughout the weekend, reports is worse in certain positions such as trying to lay backwards, patient reports a history of recent pericardial effusion requiring pericardiocentesis at [facility] in January - Related Data Allergies/Adverse Reactions: No Known Allergies Allergy (Verified 04/01/17 17:42) Past Medical History - Past Medical History Cardiac Medical History: Reports: Hx Hypertension - on meds Denies: Hx Heart Attack Pulmonary Medical History: Denies: Hx Asthma, Hx Bronchitis, Hx COPD, Hx Pneumonia Neurological Medical History: Denies: Hx Seizures Renal/ Medical History: Denies: Hx Peritoneal Dialysis Musculoskeltal Medical History: Denies Hx Arthritis - Immunizations Hx Diphtheria, Pertussis, Tetanus Vaccination: Yes Physical Exam - Vital signs Vitals: Temp Pulse Resp BP Pulse Ox 98.8 F 96 18 157/115 H 100 04/01/17 17:38 10 17:38 04/01/17 17:38 04/01/17 17:38 04/01/17 17:38 Course - Vital Signs Vital signs: Temp Pulse Resp BP Pulse Ox 98.8 F 96 18 157/115 H 100 04/01/17 17:38 04/01/17 17:38 04/01/17 17:38 04/01/17 17:38 04/01/17 17:38
[2017-04-01 18:31] LABS: ABSOLUTE BASOPHILS # (AUTO) 0.1 10^3/uL (0.0-0.2); ABSOLUTE EOSINOPHILS # (AUTO) 0.6 10^3/uL (0.0-0.6); ABSOLUTE LYMPHOCYTES (AUTO) 1.4 10^3/uL (0.5-4.7); ABSOLUTE MONOCYTES (AUTO) 0.9 10^3/uL (0.1-1.4); ABSOLUTE NEUT (AUTO) 9.1 10^3/uL (1.7-8.2); BASOPHILS % (AUTO) 1.2 % (0-2); EOSINOPHILS % (AUTO) 4.9 % (0-6); HEMATOCRIT 33.8 % (37.9-51.0); HEMOGLOBIN 10.8 g/dL (13.5-17.0); HGB HCT DIFFERENCE -1.4; LYMPHOCYTES % (AUTO) 11.2 % (13-45); MEAN CORPUSCULAR HEMOGLOBIN 26.9 pg (27.0-33.4); MEAN CORPUSCULAR VOLUME 84 fl (80-97); MONOCYTES % (AUTO) 7.5 % (3-13); RED BLOOD COUNT 4.02 10^6/uL (4.35-5.55); RED CELL DISTRIBUTION WIDTH 22.5 % (11.5-14.0); SEGMENTED NEUTROPHILS % (AUTO) 75.2 % (42-78); WHITE BLOOD COUNT 12.1 10^3/uL (4.0-10.5)
[2017-04-01 18:46] LABS: ALANINE AMINOTRANSFERASE 16 U/L (21-72); ALBUMIN 4.3 g/dL (3.5-5.0); ALKALINE PHOSPHATASE 93 U/L (38-126); ANION GAP 17 (5-19); ASPARTATE AMINO TRANSFERASE 39 U/L (17-59); BILIRUBIN,DIRECT 0.4 mg/dL (0.0-0.4); BILIRUBIN,TOTAL 0.4 mg/dL (0.2-1.3); BLOOD UREA NITROGEN 52 mg/dL (7-20); CALCIUM 10.4 mg/dL (8.4-10.2); CARBON DIOXIDE 24 mmol/L (22-30); CHLORIDE 104 mmol/L (98-107); CREATINE KINASE 434 U/L (55-170); GLUCOSE 69 mg/dL (75-110); POTASSIUM 4.8 mmol/L (3.6-5.0); SODIUM 144.7 mmol/L (137-145); TOTAL PROTEIN 7.9 g/dL (6.3-8.2)
[2017-04-01 18:53] LABS: CREATININE RESULT 16.71 mg/dL (0.52-1.25)
[2017-04-01 18:57] LABS: CREATINE KINASE MB 4.02 ng/mL (<4.55); TROPONIN I 0.015 ng/mL
--- NOTE | 2017-04-01 18:58 | RADIOLOGY REPORT (SQ) ---
EXAM DESCRIPTION: CHEST PA/LAT COMPLETED DATE/TIME: 04/01/2017 6:41 pm REASON FOR STUDY: cp COMPARISON: None. EXAM PARAMETERS: NUMBER OF VIEWS: two views TECHNIQUE: Digital Frontal and Lateral radiographic views of the chest acquired. RADIATION DOSE: NA LIMITATIONS: none FINDINGS: LUNGS AND PLEURA: No acute opacities, masses or pneumothorax. No pleural effusion. MEDIASTINUM AND HILAR STRUCTURES: No masses or contour abnormalities. HEART AND VASCULAR STRUCTURES: Heart normal size. No evidence for failure. BONES: No acute findings. HARDWARE: Right-sided tunneled catheter. OTHER: No other significant finding. IMPRESSION: No acute findings. TECHNICAL DOCUMENTATION: JOB ID: [id number] [employer]- All Rights Reserved
--- NOTE | 2017-04-01 20:43 | ER Document Report ---
ED Cardiac - General Chief Complaint: Chest Pain > 30 Stated Complaint: CHEST PAIN Time Seen by Provider: 04/01/17 17:35 Mode of Arrival: Ambulatory Notes: Patient says that he has been experiencing pain in the right chest since he had dialysis Sunday. Patient is on hemodialysis Sunday. He had his dialysis Sunday and went home and after he got home began to experience this sharp pain around the port in his right chest. The pain is worse for him to take a deep breath or to twist or turn or to lay on his left side. He has not had a cough or chest congestion and does not feel short of breath. Has not had any significant fever. Does not have any swelling of his legs and has never had any problem with blood clots. Patient did have a pericardial effusion in January that caused him to have symptoms of shortness of breath and he was transferred to [place] where the effusion was drained. Patient has been on dialysis since May 2015. History of sarcoid. History of hypertension. TRAVEL OUTSIDE OF THE [place] IN LAST 30 DAYS: No - Related Data Allergies/Adverse Reactions: No Known Allergies Allergy (Verified 04/01/17 17:42) Past Medical History - General Information source: Patient - Social History Smoking Status: Never Smoker Chew tobacco use (# tins/day): No Frequency of alcohol use: None Drug Abuse: None Family History: Reviewed & Not Pertinent Patient has suicidal ideation: No Patient has homicidal ideation: No - Past Medical History Cardiac Medical History: Reports: Hx Hypertension - on meds Renal/ Medical History: Reports: Hx End Stage Renal Disease, Hx Hemodialysis, Hx Peritoneal Dialysis - Immunizations Hx Diphtheria, Pertussis, Tetanus Vaccination: Yes Review of Systems - Review of Systems Notes: REVIEW OF SYSTEMS: CONSTITUTIONAL : Denies fever. EENT: Denies eye, ear, nose or mouth or throat pain or other symptoms. CARDIOVASCULAR: HPI. RESPIRATORY: Denies cough, chest congestion, or shortness of breath. GASTROINTESTINAL: Denies abdominal pain or nausea, vomiting, or diarrhea. GENITOURINARY: Denies difficulty or painful urinating, urinary frequency, blood in urine. MUSCULOSKELETAL: Denies back or neck pain. Denies joint pain or swelling. SKIN: Denies rash or skin lesions. NEUROLOGICAL: Denies LOC or altered mental status. Denies headache. Denies sensory loss or motor deficits. ALL OTHER SYSTEMS REVIEWED AND NEGATIVE. Physical Exam - Vital signs Vitals: Temp Pulse Resp BP Pulse Ox 98.8 F 96 18 157/115 H 100 04/01/17 17:38 04/01/17 17:38 04/01/17 17:38 04/01/17 17:38 04/01/17 17:38 Interpretation: Normal - Set for high blood pressure., Hypertensive - Notes Notes: PHYSICAL EXAMINATION: GENERAL: Well-appearing, in no acute distress. HEAD: Atraumatic, normocephalic. EYES: Pupils equal round and reactive to light, extraocular movements intact. ENT: oropharynx clear without exudates. Moist mucous membranes. NECK: Normal range of motion, supple. LUNGS: Breath sounds clear and equal bilaterally. Tenderness to press in the right chest around the patient's port. No evidence of infection of the port. No drainage. HEART: Regular rate and rhythm without murmurs. ABDOMEN: Soft, nontender. No guarding or rebound. BACK: No tenderness throughout entire back. EXTREMITIES: Normal range of motion without pain. No swelling or pain or any suggestion of blood clots. Negative Homans bilaterally. NEUROLOGICAL: Normal speech, normal gait. Normal sensory, motor, and reflex exams. Awake, alert, and oriented x3. Cranial nerves normal. PSYCH: Normal mood, normal affect. SKIN: Warm, dry, no rashes. Course - Vital Signs Vital signs: Temp Pulse Resp BP Pulse Ox 98.8 F 96 19 173/123 H 100 04/01/17 17:38 04/01/17 17:38 04/01/17 20:26 04/01/17 20:26 04/01/17 20:26 - Laboratory Result Diagrams: 04/01/17 18:15 04/01/17 18:15 Laboratory results interpreted by me: 04/01/17 04/01/17 18:15 18:15 WBC 12.1 H RBC 4.02 L Hgb 10.8 L Hct 33.8 L MCH 26.9 L RDW 22.5 H Lymphocytes % 11.2 L Absolute Neutrophils 9.1 H BUN 52 H Creatinine 16.71 H Est GFR ( Amer) 4 L Est GFR (Non-Af Amer) 3 L Glucose 69 L Calcium 10.4 H ALT 16 L Creatine Kinase 434 H Discharge - Discharge Clinical Impression: Chest wall pain Condition: Stable Disposition: HOME, SELF-CARE Additional Instructions: CHEST PAIN OF UNCLEAR CAUSE: The exact cause of your chest pain isn't clear. Fortunately, there is no evidence of a dangerous medical condition. Further testing may be required to find the source of the pain. Most often, we find that this pain is coming from the chest wall -- the muscles or rib joints in the chest. But chest pain can come from the lung and lung lining, the esophagus, the heart valves or heart lining, and even the stomach or gallbladder. Rest. Eat lightly until the pain is gone. We may prescribe medicine for pain and inflammation. You should call the physician immediately if the pain radiates to the shoulder, jaw or arms; if you start to run a fever or develop a cough; or if you develop shortness of breath, or other new or alarming symptoms. NORMAL EXAM AND WORKUP: At this time, your examination and workup show no significant abnormality. You have a very slight elevation of your white cell count, but no evidence of any significant infection. No significant abnormal physical findings were noted. All laboratory, EKG, and imaging (x-ray, CT scans, ultrasound) studies that were ordered show no significant abnormality. Although your examination and all studies that were ordered showed no significant abnormal finding, there are no examinations and no studies that are 100% accurate. There is always the possibility that some abnormality could exist and not be detected with physical examination or within the limits and capabilities of laboratory and other studies. You should return or follow up as you were instructed on your visit today for further evaluation if your symptoms do not resolve. CHEST WALL PAIN: Your chest pain may be coming from the chest wall. This is often caused by straining the muscles or joints in the chest during physical activity, direct trauma, coughing, or vigorous vomiting. Persons with arthritis are especially prone to this type of pain, due to inflammation of the cartilage joints near the breast bone. Occasionally, no cause can be found. Rest from strenuous physical activity. This kind of chest pain is usually made worse by movement of the chest. Depending on the symptoms, we may prescribe medicine for pain, muscle relaxation, and antiinflammatory effects. If the pain is new, and seems to be due to muscle strain, cold packs can help. Otherwise, apply gentle warmth to the painful area for 15 minutes every hour or two. You should call contact the doctor immediately if things change. Further evaluation is needed if you develop a fever or cough, if the nature of the pain changes, or if you become short of breath. USE OF ACETAMINOPHEN (Tylenol): Acetaminophen may be taken for pain relief or fever control. It's much safer than aspirin, offering a wider range of "safe" dosages. It is safe during . Some brand names are Tylenol, Panadol, Datril, Anacin 3, Tempra, and Liquiprin. Acetaminophen can be repeated every four hours. The following are maximum recommended dosages: WEIGHT Dose Drops Elixir Chewable( 80mg) (LBS.) drprs=droppers tsp=teaspoon >89 pounds or adults 650 mg to 900 mg Acetaminophen can be repeated every four hours. Maximum dose not to exceed 4000 mg a day. These maximum recommended dosages are slightly higher than the dosages written on the product container, but these dosages are very safe and below the toxic dosage for acetaminophen. FOLLOW-UP CARE: If you have been referred to a physician for follow-up care, call the physician s office for an appointment as you were instructed or within the next two days. If you experience worsening or a significant change in your symptoms, notify the physician immediately or return to the Emergency Department at any time for re-evaluation. When you go to dialysis tomorrow, make them aware of this pain that you are experiencing. If you have new or worsening symptoms such as fever, return immediately for reevaluation.
[2017-04-01 20:44] VITALS: BP 173/123
--- NOTE | 2017-04-01 21:15 | EKG REPORT ---
SEVERITY:- ABNORMAL ECG - SINUS RHYTHM PROBABLE LEFT ATRIAL ABNORMALITY LEFT ANTERIOR FASCICULAR BLOCK : Confirmed by: Kayla Barker 01-Apr-2017 21:14:41
== END 2017-04-01 20:52 | disposition home or self-care (01) ==
LOC: ER 17:23
DX: R07.89 Other chest pain (principal); I12.0 Hypertensive chronic kidney disease with stage 5 chronic kidney disease or end stage renal disease; N18.6 End stage renal disease; Z99.2 Dependence on renal dialysis
CPT/HCPCS: 36415; 71020; 80053; 82550; 82553; 84484; 85025; 93005; 93010; 99285

== ENCOUNTER 2017-04-24 08:25 | Day surgery (SDC) | payer MEDICARE, OTHER ==
[2017-04-24 09:11] LABS: HEMOGLOBIN 12.5 g/dL (13.5-17.0); HGB HCT DIFFERENCE -1.5; MEAN CORPUSCULAR HEMOGLOBIN 26.4 pg (27.0-33.4); MEAN CORPUSCULAR VOLUME 83 fl (80-97); RED BLOOD COUNT 4.72 10^6/uL (4.35-5.55); RED CELL DISTRIBUTION WIDTH 24.7 % (11.5-14.0); WHITE BLOOD COUNT 5.4 10^3/uL (4.0-10.5)
[2017-04-24] MEDS ORDERED: BUPIVACAINE HCL 0.25 % INJ/PF (2.5 MG/1 ML) 30 ML VIAL ONE (09:12)
[2017-04-24] MEDS ORDERED: LIDOCAINE 0.5% INJ-PF (5 MG/ML) 50 ML SDV ONE (09:12)
[2017-04-24 09:22] LABS: ANION GAP 18 (5-19); BLOOD UREA NITROGEN 24 mg/dL (7-20); CALCIUM 10.4 mg/dL (8.4-10.2); CARBON DIOXIDE 25 mmol/L (22-30); CHLORIDE 96 mmol/L (98-107); CREATININE RESULT 11.42 mg/dL (0.52-1.25); GLUCOSE 85 mg/dL (75-110); POTASSIUM 5.1 mmol/L (3.6-5.0); SODIUM 138.5 mmol/L (137-145)
[2017-04-24] MEDS ORDERED: FENTANYL CITRATE INJ/PF 100 MCG/2 ML AMPUL ONE (11:02)
[2017-04-24] MEDS ORDERED: PROPOFOL INJ 200 MG/20 ML VIAL IV ONE (11:03)
[2017-04-24] MEDS ORDERED: MIDAZOLAM 2 MG/2 ML INJ ONE (11:03)
[2017-04-24] MEDS ORDERED: CEFAZOLIN INJ 1 GM VIAL ONE (11:32)
[2017-04-24] MEDS ORDERED: MEPERIDINE HCL/PF INJ 25 MG/1 ML DISP.SYRIN IV PRN (11:35)
[2017-04-24] MEDS ORDERED: OXYCODONE-ACETAMINOPHEN 5-325 MG TABLET PO PRN ×2 (11:35)
[2017-04-24] MEDS ORDERED: DIPHENHYDRAMINE HCL 50 MG/ML VIAL IV PRN (11:35)
[2017-04-24] MEDS ORDERED: FENTANYL CITRATE INJ/PF 100 MCG/2 ML AMPUL IV PRN ×3 (11:35)
[2017-04-24] MEDS ORDERED: PROMETHAZINE HCL INJ 25 MG/1 ML VIAL IV PRN ×2 (11:35)
[2017-04-24] MEDS ORDERED: MORPHINE SULFATE 10 MG/ML INJ IV PRN (11:35)
--- NOTE | 2017-04-24 11:59 | PDOC DISCHARGE SUMMARY ---
Discharge Summary (SDC) - Discharge Final Diagnosis: #[address] catheter [address] place. 2. Perm[address]athe[address] in place. 3. End-stage renal disease on hemodialysis. 4. Hypertension Date of Surgery: 04/24/17 Discharge Date: 04/24/17 Condition: Good Treatment or Instructions: Discharge home [after recovery per ASU criteria]. Diet , [renal],as tolerated, when fully awake advance as tolerated. Activities within moderation encouraged. Follow up in my office by appointment in about [1 week]. Call for appointment. Leave wounds [covered], [keep clean and dry, until office visit in 1 week]. Hold of on school/work [until evaluation in office]. Meds per med rec. Percocet prescription. May shower [in 48 hrs], [try to keep operated area as dry as possible]. Prescriptions: Oxycodone HCl/Acetaminophen [Percocet 5-325 mg Tablet] 1 tab PO ASDIR PRN #15 tab PRN Reason: Referrals: JASON SOOD MD [Primary Care Provider] - Discharge Diet: Other (Comments) - Renal Respiratory Treatments at Home: Deep Breathing/Coughing Discharge Activity: Activity As Tolerated, No Driving Report the Following to Your Physician Immediately: Shortness of Breath, Unusual Bleeding
--- NOTE | 2017-04-24 12:04 | Operative Report ---
Operative Report DATE OF SURGERY: 04/24/17 PREOPERATIVE DIAGNOSIS: #[address] catheter [address]. 2. Perm[address] in place. 3. End-stage renal disease on hemodialysis. 4. Hypertension POSTOPERATIVE DIAGNOSIS: #1 peritoneal dialysis catheter in place. Post removal. 2. Permacatheter in place. 3. End-stage renal disease on hemodialysis. 4. Hypertension OPERATION: Operative removal of peritoneal dialysis catheter. SURGEON: YONG ISRAEL PATENTED HOGSHEAD ASSEMBLER: None ANESTHESIA: LMAC TISSUE REMOVED OR ALTERED: Not applicable. COMPLICATIONS: None ESTIMATED BLOOD LOSS: 5 mL. INTRAOPERATIVE FINDINGS: Well founded peritoneal dialysis catheter. Both cuffs removed with catheter. PROCEDURE: After obtaining informed consent and going over the procedure with [the patient and his family], he was taken to the operating room, [he was] appropriately sedated. The abdomen was prepped and draped in the usual sterile fashion. After the universal timeout, in which it was verified that the patient received IV antibiotic, the procedure commenced. The topographical location for the peritoneal dialysis catheter was sketched. Local anesthesia was infiltrated. An incision was now placed in the scar of the previous access site. The incision was made and dissection proceeded down to the catheter between the 2 cuffs. The external cuff was now dissected away for superficial event circumferentially. The catheter was transected and the superficial portion removed and discarded. Mild traction was now applied to the remaining deep portion of the catheter. The external oblique aponeurosis was opened just over the cuff and dissection proceeded the fibers of the rectus muscle down to the cuff. The cuff was now dissected out. The catheter just distal to the cuff was grasped on the internal portion of the catheter removed entirely. Applying traction to both free ends of the catheter the remaining cuff attachments were dissected and the catheter removed and discarded. The wound was carefully inspected for hemostasis which was secured. Interrupted 3-0 PDS 40 was used for proper reapproximation of the external oblique aponeurosis. A piece of Surgicel was left in the rectus muscle. The remaining wound was now closed using interrupted 3 deep. 3-0 PDS sutures. Dressings applied and the procedure concluded.
[2017-04-24 13:36] VITALS: BP 150/120
== END 2017-04-24 14:22 | disposition home or self-care (01) ==
LOC: OROUT 08:25
PROVIDERS: ATTEND Surgery
PROC: 0WPG03Z Removal of Infusion Device from Peritoneal Cavity, Open Approach (ICD-10-PCS; principal; 2017-04-24 10:30)
DX: I12.0 Hypertensive chronic kidney disease with stage 5 chronic kidney disease or end stage renal disease (principal); N18.6 End stage renal disease; D63.1 Anemia in chronic kidney disease; Z99.2 Dependence on renal dialysis; E87.2 Acidosis; F17.210 Nicotine dependence, cigarettes, uncomplicated; R01.1 Cardiac murmur, unspecified; G43.909 Migraine, unspecified, not intractable, without status migrainosus; Z79.899 Other long term (current) drug therapy
CPT/HCPCS: 36415; 85027; 80048; 49422; J2250; J0690; J3010; J3490; J2704; 1844

== ENCOUNTER → 2017-11-27 | Outpatient (CLI) | payer MEDICARE, OTHER ==
--- NOTE | 2017-11-27 11:12 | RADIOLOGY REPORT (SQ) ---
EXAM DESCRIPTION: CT ABD/PELVIS NO ORAL OR IV COMPLETED DATE/TIME: 11/27/2017 10:05 am REASON FOR STUDY: OTHER CYSTOSTOMY STATUS Z93.59 OTHER CYSTOSTOMY STATUS COMPARISON: CT abdomen pelvis 08/09/2015 TECHNIQUE: CT scan of the abdomen and pelvis performed without intravenous or oral contrast. Images reviewed with lung, soft tissue, and bone windows. Reconstructed coronal and sagittal MPR images revi ewed. All images stored on PACS. All CT scanners at this facility use dose modulation, iterative reconstruction, and/or weight based d osing when appropriate to reduce radiation dose to as low as reasonably achievable (ALARA). [facility]: Dose Right [facility]: CareDose [facility]: Dose Right [facility]: Teradose 4D [facility]: Smart Fonality RADIATION DOSE: CT Rad equipment meets quality standard of care and radiation dose reduction techniq ues were employed. CTDIvol: 3.1 mGy. DLP: 156 mGy-cm.mGy. LIMITATIONS: None. FINDINGS: LOWER CHEST: No significant findings. No nodules or infiltrates. NON-CONTRASTED LIVER, SPLEEN, ADRENALS: Evaluation limited by lack of IV contrast. No identified sign ificant masses. PANCREAS: No masses. No peripancreatic inflammatory changes. GALLBLADDER: No identified stones by CT criteria. No inflammatory changes to suggest cholecystitis. RIGHTS KIDNEY AND URETERS: Both kidneys measure about 7 cm in length. No suspicious masses. Assessm ent limited by lack of IV contrast. No significant calcifications. No hydronephrosis or hydrouret er. AORTA AND RETROPERITONEUM: No aneurysm. No retroperitoneal masses or adenopathy. BOWEL AND PERITONEAL CAVITY: Patient did not drink oral contrast. There is radiopaque material in st ool in the colon, which could be from study elsewhere or could be radiopaque material from antacids. Large amount of stool in the colon. No obvious masses or inflammatory changes. No free fluid. Radha toneal dialysis catheter seen in the pelvis 08/09/2015 has been removed. APPENDIX: Normal. PELVIS, BLADDER, AND ABDOMINAL WALL:No abnormal masses. No free fluid. Bladder decompressed, no bladd er stones BONES: No significant findings. OTHER: No other significant finding. IMPRESSION: Small [place] kidneys. Peritoneal dialysis catheter seen in 2016 has been removed. COMMENT: Quality ID # [id number]: Final reports with documentation of one or more dose reduction techniques (e.g., Automated exposure control, adjustment of the mA and/or kV according to patient size, use of iterative reconstruction technique) TECHNICAL DOCUMENTATION: JOB ID: [id number] [employer]- All Rights Reserved Reading location - IP/workstation name: [email or web address]
== END ==
LOC: RAD 09:46
PROVIDERS: ATTEND Internal Medicine Nephrology
DX: N18.6 End stage renal disease (principal); Z93.50 Unspecified cystostomy status
CPT/HCPCS: 74176

== ENCOUNTER → 2018-08-13 | Outpatient (CLI) | payer MEDICARE, OTHER ==
--- NOTE | 2018-08-13 11:32 | RADIOLOGY REPORT (SQ) ---
EXAM DESCRIPTION: U/S ABDOMEN COMPLETE W/O DOP COMPLETED DATE/TIME: 08/13/2018 9:06 am REASON FOR STUDY: AWAITING ORGAN TRANSPLANT STATUS (Z76.82) Z76.82 AWAITING ORGAN TRANSPLANT STATUS COMPARISON: CT abdomen pelvis 11/27/2017 TECHNIQUE: Dynamic and static grayscale images acquired of the abdomen and recorded on PACS. Additio nal selected color Doppler and spectral images recorded. Note: Study does not meet criteria for complete doppler/duplex scan LIMITATIONS: None. FINDINGS: PANCREAS: Midline pancreas unremarkable LIVER: No masses. Echotexture normal. LIVER VASCULATURE: Normal directional flow of the main portal vein and hepatic veins. GALLBLADDER: No stones. Normal wall thickness. No pericholecystic fluid. ULTRASOUND-DETECTED GORMAN'S SIGN: Negative. INTRAHEPATIC DUCTS AND COMMON DUCT: CBD and intrahepatic ducts normal caliber. No filling defects. INFERIOR VENA CAVA: Normal flow. AORTA: No aneurysm. RIGHT KIDNEY: 8 cm in length with diffuse cortical thinning and profound increased echogenicity. 9 mm cyst right upper pole kidney. No hydronephrosis. No calcifications. LEFT KIDNEY: 7 cm in length with diffuse cortical thinning and profound increased echogenicity. No solid or suspicious masses. No hydronephrosis. No calcifications. SPLEEN: Normal size. No solid masses. PERITONEAL AND PLEURAL SPACES: No ascites or effusions. OTHER: No other significant finding. IMPRESSION: Echogenic small kidneys from chronic renal disease. Otherwise unremarkable study. TECHNICAL DOCUMENTATION: JOB ID: [id number] [employer]- All Rights Reserved Reading location - IP/workstation name: [email or web address]
== END ==
LOC: RAD 07:52
PROVIDERS: ATTEND Physician Assistant Medical
DX: Z76.82 Awaiting organ transplant status (principal); N27.1 Small kidney, bilateral; N18.9 Chronic kidney disease, unspecified
CPT/HCPCS: 76700

== ENCOUNTER → 2018-11-08 | Outpatient (CLI) | payer MEDICARE, OTHER ==
--- NOTE | 2018-11-08 12:48 | RADIOLOGY REPORT (SQ) ---
EXAM DESCRIPTION: CHEST 2 VIEWS COMPLETED DATE/TIME: 11/08/2018 11:34 am REASON FOR STUDY: WAITING FOR TRANSPLANT COMPARISON: Two-view chest 04/01/2017 CT chest 03/09/2017 EXAM PARAMETERS: NUMBER OF VIEWS: two views TECHNIQUE: Digital Frontal and Lateral radiographic views of the chest acquired. RADIATION DOSE: NA LIMITATIONS: none FINDINGS: LUNGS AND PLEURA: No opacities, masses or pneumothorax. No pleural effusion. MEDIASTINUM AND HILAR STRUCTURES: No masses or contour abnormalities. HEART AND VASCULAR STRUCTURES: Heart normal size. No evidence for failure. BONES: No acute findings. HARDWARE: None in the chest. OTHER: No other significant finding. IMPRESSION: NO ACUTE RADIOGRAPHIC FINDING IN THE CHEST. TECHNICAL DOCUMENTATION: JOB ID: [id number] [employer]- All Rights Reserved Reading location - IP/workstation name: [email or web address]
== END ==
LOC: RAD 11:19
PROVIDERS: ATTEND Physician Assistant Medical
DX: Z76.82 Awaiting organ transplant status (principal)
CPT/HCPCS: 71046

== ENCOUNTER → 2018-11-19 | Outpatient (CLI) | payer MEDICARE, OTHER ==
[~2018-11-19] MED LIST: REGADENOSON INJ 0.4 MG/5 ML DISP.SYRIN IV ONE
--- NOTE | 2018-11-19 21:39 | RADIOLOGY REPORT ---
STRESS TEST REPORT PATIENT NAME: LYUBOV LANGLEY JR ROOM#: DATE OF SERVICE: 11/19/2018 AGE: 38Y ORDER#: [id number] REFERRING MD: ANN BUTCHER M.D. PROCEDURE PERFORMED: REST/STRESS SINGLE ISOTOPE CARDIOLITE SPECT IMAGING WITH IV LEXISCAN STRESS AND GATED SPECT IMAGING INDICATION: Workup pre-kidney transplant. CLINICAL HISTORY: This is a 38 year old black male with no known coronary artery disease but has cardiac risks in the end-stage renal disease and dialysis. Cardiac risk factors include hypertension, CKD, no current symptomatology or chest pain. REPORT: The patient received IV Lexiscan 0.4 mg infused over 10 seconds and flushed. The resting heart rate was 79 bpm and increased to 82 bpm and end infusion. The resting blood pressure was 125/84 and increased to 145/76 at end infusion. The patient had no symptoms of chest pains, but did feel fatigue in his thigh muscles. The resting 12-lead EKG showed NSR 71 bpm, left atrial enlargement, poor R-wave progression in V1 to V3, nonspecific lateral T inversions. At end infusion, no increased ST changes were seen. Myocardial perfusion imaging was performed at rest 60 minutes following injection of 10.85 mCi of Cardiolite. Ten seconds into the infusion the patient was injected with 32.6 mCi of Cardiolite then flushed. Gated post stress tomographic imaging was performed 60 minutes after stress. FINDINGS: The overall quality of the study is good. Left ventricular cavity is noted to be normal in size on both the rest and stress studies. There is no evidence of transient ischemic dilatation of the left ventricle even though TID ratio is calculated at 1.20 by computer. SPECT images showed no evidence of any reversible ischemia induced by IV Lexiscan. There was, however, a large fixed defect in the inferior wall and inferolateral wall. Gated SPECT imaging showed reduced motion and contraction of the inferior wall, inferolateral wall, and the inferoseptal wall. The left ventricular ejection fraction was calculated to be 57%. IMPRESSION: Myocardial perfusion imaging is abnormal. There is no reversible ischemia, but there is a large fixed severe perfusion defect in the inferior wall and inferolateral wall with reduced motion and contraction in the inferior wall, inferolateral wall, and inferoseptal wall. The overall left ventricular systolic function was still normal at 57%. No prior study for comparison. INTERPRETING PHYSICIAN: RADHA SANDHU M.D. /: [id number] TT: [id number] ID: [id number] /: [id number] TD: [id number] JOB: [id number] cc:Charlotte RENEE M.D. > [facility]
== END ==
LOC: RAD 06:08
PROVIDERS: ATTEND Internal Medicine Nephrology
DX: D86.0 Sarcoidosis of lung (principal); R06.89 Other abnormalities of breathing; I25.10 Atherosclerotic heart disease of native coronary artery without angina pectoris; I12.0 Hypertensive chronic kidney disease with stage 5 chronic kidney disease or end stage renal disease; N18.6 End stage renal disease
CPT/HCPCS: 93017; 78452; A9500; J2785; Q9969

== ENCOUNTER → 2018-12-04 | Outpatient (CLI) | payer MEDICARE, OTHER ==
[~2018-12-04] MED LIST changes: +ALBUTEROL SULFATE 0.083% NEB 2.5 MG/3 ML AMPUL NEB ONE; -REGADENOSON INJ 0.4 MG/5 ML DISP.SYRIN IV ONE
--- NOTE | 2018-12-09 10:46 | Pulmonary Function Test ---
Pulmonary Function Test Date of Procedure:: 12/09/18 INDICATION:: Sarcoidosis Referring Provider: Dr. De Los Santos Investigation Specialist: Blaire Mejia, [employer]ATOR, [employer]PER[employer]OR - Report Spirometry: Spirometry: pre-FVC: 5.07 L 104% post-FVC 5.14 L 108% pre-FEV:1 3.55 L 88% post-FEV1; 3.76 L 94% pre-FEV1/FVC % 70 post-FEV1/FVC% 73 predicted 83 [id number]% 2.48 L 59% [id number]% 2.82 L 67% Lung Volume: Total lung capacity: 6.75 L 100% Vital capacity: 5.09 L 105% Inspiratory capacity: 3.64 L FRC N2: 3.11 L 1% ERV: 1.16 L RV: 1.66 L 86% RV/TLC %: 25 predicted 30 Diffusion Capactity: Diffusion Capacity: DLCO; 27.7 106% DLCO/VA; 4.16 94% Impression: Mild obstructive ventilatory defect is implied by the decrease in flow at the FEF 25-75%. No restrictive ventilatory defect. No hyperinflation or air trapping. Normal diffusion capacity.
== END ==
LOC: RT 12:41
PROVIDERS: ATTEND Internal Medicine Nephrology
DX: D86.0 Sarcoidosis of lung (principal); R06.02 Shortness of breath; I12.0 Hypertensive chronic kidney disease with stage 5 chronic kidney disease or end stage renal disease; N18.6 End stage renal disease
CPT/HCPCS: 94729; 94727; 94060; A9270